=== PATIENT | male | born 1940 | race Caucasian/White ===

== ENCOUNTER → 2018-12-12 10:02 | Outpatient (CLI) | payer MEDICARE, OTHER, SELFPAY ==
[2014-12-04 12:46] VITALS: BMI 33.7
--- NOTE | 2018-12-12 10:09 | EKG12_ITS ---
Test Reason : ROUTINE Blood Pressure : / mmHG Vent. Rate : 070 BPM Atrial Rate : 300 BPM P-R Int : 000 ms QRS Dur : 148 ms QT Int : 472 ms P-R-T Axes : 000 268 027 degrees QTc Int : 509 ms Atrial flutter Right bundle branch block Possible Lateral infarct , age undetermined Inferior infarct , age undetermined Abnormal ECG Confirmed by TOBIAS BAILEY, HANNAH ([id number]), video effects editor GAUDENCIO DAMON ([id number]) on 12/13/2018 1:58:19 PM Referred By: [place] Confirmed By:HANNAH COLLADO MD
== END ==
PROVIDERS: Family Provider Family Medicine; PCP Family Medicine; Referring Provider Internal Medicine Pulmonary Disease; Visit Provider Internal Medicine Pulmonary Disease
DX: I48.91 Unspecified atrial fibrillation (principal)
CPT/HCPCS: 93005

== ENCOUNTER → 2018-12-19 09:43 | Outpatient (CLI) | payer MEDICARE, OTHER, SELFPAY ==
--- NOTE | 2018-12-19 09:47 | RAD_ITS ---
PROCEDURE: Sniff test. DATE OF EXAMINATION: December 19, 2018 INDICATION: Male, 78 years old. Elevated right hemidiaphragm. FLUOROSCOPY TIME (if supplied): (0:16) minutes/seconds There is elevation of the right hemidiaphragm. There is normal translation of the right and left hemidiaphragms during the inspiration expiration views. RAD/Chest Sniff Test Fluoro Only IMPRESSION: Normal excursion of the hemidiaphragms. Electronically Signed: Keanu Moeller, at 15:02 EDT , Service support ,
--- NOTE | 2018-12-19 09:50 | RAD_ITS ---
STUDY: X-RAY CHEST REASON FOR EXAM: Male, 78 years old. Dyspnea. TECHNIQUE: PA and lateral views of the chest. COMPARISON: None. FINDINGS: There is elevation of the right hemidiaphragm. Blunting of the left costophrenic angle with mild increased markings at the left lung base suggestive of scarring and/or atelectasis. Sternal cerclage wires and vascular clips are present from a prior sternotomy and coronary artery bypass graft procedure (CABG). Mild cardiomegaly. Normal mediastinum and no. Normal visualized pulmonary arteries. There is atherosclerotic tortuosity of the aortic arch and descending thoracic aorta. There are diffuse degenerative changes of the visualized thoracic spine. Status post right shoulder replacement. There is no demonstrated abnormality of the visualized soft tissue structures of the upper abdomen. RAD/Chest PA and Lateral IMPRESSION: Elevation of the right hemidiaphragm. Blunting of the left costophrenic angle with mild increased markings at the left lung base suggestive of scarring and/or atelectasis. Electronically Signed: Keanu Moeller, at 10:20 EDT , Service support ,
== END ==
PROVIDERS: Family Provider Family Medicine; PCP Family Medicine; Referring Provider Internal Medicine Pulmonary Disease; Visit Provider Internal Medicine Pulmonary Disease
DX: R06.00 Dyspnea, unspecified (principal)
CPT/HCPCS: 71046; 76000

== ENCOUNTER → 2019-02-01 06:56 | Outpatient (CLI) | payer MEDICARE, OTHER, SELFPAY ==
--- NOTE | 2019-02-01 06:57 | CT_ITS ---
STUDY: CT CHEST WITHOUT CONTRAST REASON FOR EXAM: Male, 78 years old. Dyspnea. RADIATION DOSAGE (If Supplied By Facility): CTDIvol = ( 17.64 ) mGy, DLP = ( 617.04 ) mGycm TECHNIQUE: Transaxial imaging was performed without the administration of intravenous contrast material. Multiplanar coronal and sagittal images were reformatted. Individualized dose optimization techniques were used for this CT. COMPARISON: None. FINDINGS: The lungs are underexpanded with mild bilateral basilar and left apical atelectasis. Remainder of the lung frank are clear. No distinct nodule or infiltrate seen. There is no demonstrated pleural abnormality. Sternal cerclage wires and vascular clips are present from a prior sternotomy and coronary artery bypass graft procedure (CABG). Heart is enlarged. Coronary artery calcifications noted. Normal mediastinum. Normal hilar regions. Normal unenhanced pulmonary arteries. There is atherosclerotic calcification of the aortic arch with tortuosity and elongation of the aortic arch and descending thoracic aorta. There are multi-level degenerative changes of the thoracic spine. Upper abdomen: Several low-attenuation structure is demonstrated within the liver at the level of the right and left liver lobe, largest measuring approximately 1.3 cm. These are too small to be adequately characterize and statistically consistent with benign process such as cysts in the absence of known neoplasm. These were described on previous CT examination 10/25/2012. There is mild nonspecific perinephric stranding. The spleen and pancreas are normal. Remainder of the upper abdominal structures are unremarkable. CT/Chest without Contrast IMPRESSION: Bilateral basilar and left apical atelectasis, otherwise no acute cardiopulmonary process seen. Electronically Signed: Suad Johnson MD at 7:21 EST , Service support ,
== END ==
PROVIDERS: Family Provider Family Medicine; PCP Family Medicine; Referring Provider Internal Medicine Pulmonary Disease; Visit Provider Internal Medicine Pulmonary Disease
DX: R06.00 Dyspnea, unspecified (principal)
CPT/HCPCS: 71250

== ENCOUNTER 2022-12-22 14:00 | Outpatient (RCR) | payer MEDICARE, OTHER, SELFPAY ==
[2022-12-22 14:12] VITALS: BP 122/71; PULSE 82; RESP 16; TEMP 36.3; BMI 27.9
--- NOTE | 2022-12-22 16:49 | PCM.WC.HP ---
History of Present Illness Date of Service: 12/22/22 Chief Complaint: Full-thickness ulceration, right ankle History of Wound: Chronic ulceration for the past few months. Progress of Wound: Mr. Danielle is a 82-year-old diabetic male presenting to the wound care center today [facility] for evaluation of chronic ulceration to the lateral aspect of his right ankle. Patient is unsure how the wound started. He believes it is from shoe gear. Patient is a newly diagnosed diabetic. He is a patient of Dr. Rodriguez, and referred to the wound care center per his primary care physician. Patient has had history to the right ankle by Dr. Rodriguez, but the patient denies that this is a wound/surgical complication. Patient does not check his blood sugar at this time but he is on diabetic medication. He denies trauma. Denies constitutional symptoms. No other pedal complaints at this time. [facility] Home Medications aspirin 81 mg chewable tablet 81 mg PO DAILY@0800 12/10/13 [History Last Taken Unknown] finasteride 5 mg tablet 5 mg PO DAILY 12/10/13 [History Last Taken 12/04/14 06:30 5 MG] acetaminophen 325 mg tablet (Pain Relief (acetaminophen)) 650 mg PO Q4H PRN fever or pain 12/22/22 [History Last Taken Unknown] allopurinol 300 mg tablet 300 mg PO BID 12/22/22 [History Last Taken Unknown] ascorbic acid (vitamin C) 500 mg capsule 500 mg PO BID 12/22/22 [History Last Taken Unknown] bumetanide 1 mg tablet 1.5 mg PO BID 12/22/22 [History Last Taken Unknown] cholecalciferol (vitamin D3) 25 mcg (1,000 unit) capsule 25 mcg PO DAILY 12/22/22 [History Last Taken Unknown] colchicine (gout) 0.6 mg capsule 0.6 mg PO DAILY PRN gout flare 12/22/22 [History Last Taken Unknown] empagliflozin 10 mg tablet (Jardiance) 10 mg PO DAILY 12/22/22 [History Last Taken Unknown] ezetimibe 10 mg tablet 10 mg PO DAILY 12/22/22 [History Last Taken Unknown] gabapentin 100 mg capsule 100 mg PO TID 12/22/22 [History Last Taken Unknown] ketotifen fumarate 0.025 % (0.035 %) eye drops ([place]) 1 drp EACH EYE DAILY 12/22/22 [History Last Taken Unknown] latanoprost 0.005 % eye drops 1 drp EACH EYE DAILY 12/22/22 [History Last Taken Unknown] loratadine 10 mg tablet (Allergy Relief (loratadine)) 10 mg PO DAILY 12/22/22 [History Last Taken Unknown] metolazone 2.5 mg tablet 2.5 mg PO .weekly 12/22/22 [History Last Taken Unknown] metoprolol tartrate 25 mg tablet 12.5 mg PO BID 12/22/22 [History Last Taken Unknown] multivitamin (Daily Multi-Vitamin tablet) 1 tab PO DAILY 12/22/22 [History Last Taken Unknown] polyethylene glycol 3350 17 gram/dose oral powder (Miralax) 17 g PO DAILY PRN constipation 12/22/22 [History Last Taken Unknown] potassium chloride 20 mEq tablet,extended release (K-Tab) 40 meq PO TID 12/22/22 [History Last Taken Unknown] pyridoxine (vitamin B6) 100 mg tablet 100 mg PO DAILY 12/22/22 [History Last Taken Unknown] rivaroxaban 20 mg tablet (Xarelto) 20 mg PO DAILY 12/22/22 [History Last Taken Unknown] spironolactone 25 mg tablet 12.5 mg PO DAILY 12/22/22 [History Last Taken Unknown] tafamidis 61 mg capsule 61 mg PO DAILY 12/22/22 [History Last Taken Unknown] Allergy/AdvReac Type Severity Reaction Status Date / Time No Known Allergies Allergy Verified 12/22/22 14:30 Social History Smoking Status: Never smoker Vital Signs Vital Signs Vital Signs: 12/22/22 14:12 Temperature 97.4 F L Temperature Source Temporal Pulse Rate 82 Respiratory Rate 16 Blood Pressure 122/71 H Blood Pressure Mean 88 Blood Pressure Source Monitor Blood Pressure Position Sitting Blood Pressure Location Right Arm Oxygen Delivery Method Room Air Weight Weight: 83.461 kg Body Mass Index (BMI) 27.9 Physical Exam Narrative Vascular: DP and PT pulses are faintly palpable. CFT is brisk to the right lower extremity. Nonpitting edema appreciated to the right ankle. Evidence of varicose veins as well as hemosiderin deposits appreciated bilateral. Neurological: Light touch and epicritic station are intact. Protective sensation is diminished. Dermatological: There is a full-thickness ulceration appreciated to the lateral aspect of the right ankle measuring 0.6 x 0.3 x 0.3 cm. Wound base is granular nature with sanguinous drainage after debridement. There is no probe to bone or sign of infection. Excisional debridement down to and including subcutaneous tissue with number 3 mm dermal curette without incident, to the full-thickness ulceration of the lateral right ankle. Predebridement measurements are 0.3 x 0.2 x 0.2 cm. Postdebridement measurements are 0.6 x 0.3 x 0.3 cm. Musculoskeletal: Muscle strength 5/5 in all quadrants of bilateral. No pain on palpation of full-thickness ulceration. No pain with calf compression. Const alert, oriented x3 and no apparent distress Debridement Note Debridement Note Debridement Free Text: Excisional debridement down to and including subcutaneous tissue with number 3 mm dermal curette without incident, to the full-thickness ulceration of the lateral right ankle. Predebridement measurements are 0.3 x 0.2 x 0.2 cm. Postdebridement measurements are 0.6 x 0.3 x 0.3 cm Post-Debridement Measurements and Additional Note: Post-Debridement Measurements/Treatment - Nurse 1 - General Ulcer Assessment Start: 12/22/22 14:07 Freq: Status: Active Protocol: TAMMY Activity Type Activity Date Activity User E-sign Co-sign Detail Recorded Client Recorded Date Recorded By Document 12/22/22 14:12 [facility] Desktop 12/22/22 14:23 [facility] 12/22/22 14:12 - Today's Visit Information Type of service Initial Visit Arrival Mode Ambulatory,Cane Transfer Assistance None Patient Identification Verified (Name & Yes ) Patient Requires Transmission-Based No Precautions Height and Weight Height 5 ft 8 in Weight 83.461 kg Weight in Pounds 184.0 lbs Weight Measurement Method Stated by Patient Body Mass Index (BMI) 27.9 BMI Classification Overweight BSA - Di 1.97 Vital Signs Temperature (97.8 F-99.1 F) 97.4 F L Temperature Source Temporal Pulse Rate (60-100) 82 Pulse Location Monitor Respiratory Rate (12-18) 16 Respiratory rate source Observation Oxygen Delivery Method Room Air Blood Pressure (90/60-120/80) 122/71 H Blood Pressure Mean 88 Source Monitor Position Sitting Blood Pressure Location Right Arm History Since Last Visit- (Skip if this is Patient's initial visit) Left Footwear Regular Shoe Right Footwear Regular Shoe Pain Scale: 0-10 Numeric Is Patient Pain Free? Yes Lower Extremity Assessment/ Foot Assessment/ Toe Nail Assessment Right -Posterior Tibial Palpable No -Posterior Tibial Doppler Multiphasic -Dorsalis Pedis Palpable No -Dorsalis Pedis Doppler Multiphasic -Extremity Color Hyperpigmented -Hair Growth on Legs No -Hair Growth on Toes No -Temperature of Extremity Warm -Other Deformity No: PRIOR SURGERY W/ VISIBLE CHG IN APPEARANCE OF FOOT/ANKLE -Prior Foot Ulcer No -Charcot Joint No -Prior Amputation No -Thick Yes -Discolored Yes -Deformed No -Improper Length & Hygeine No Left -Posterior Tibial Doppler Inaudible -Dorsalis Pedis Doppler Monophasic -Extremity Color Hyperpigmented -Hair Growth on Legs No -Hair Growth on Toes No -Temperature of Extremity Warm -Other Deformity No -Prior Foot Ulcer No -Charcot Joint No -Prior Amputation No Neuropathy Assessment Feet - Top Side and Bottom <Entered> (a) Communication Assessment Preferred language [place]ian Eligibility Technician Required No Able to Read Yes Able to Write Yes Communication Tools None Right Hearing Abillity Normal Left Hearing Abillity Normal Visual Assistive Devices Glasses Teaching Assessment Preferences Verbal,Written, Audio/Visual, Demonstration Barriers to Learning None Readiness To Learn Excellent Willingness to Engage in Self Management High Activies Readiness to Engage in Self Management High Activities Anxiety Level Calm Cooperation Cooperative Perception Coherent Interest in Health Problem Asks Questions Education Importance Acknowledges Need Does Patient Smoke tobacco or other No substances Smoking Status Never smoker Is Patient Diabetic No Functional Assessment Recent Decline in Ability to Perform Denies Any Declines Culture/Confucianist/Food Operations Manager Cultural/Confucianist Needs that may affect No Treatment Plan Teaching: Wound Center *Welcome to the Wound Center -Person Taught Patient -Teaching Method Discussion -Response to teaching Verbalize understanding Welcome to the Wound Care Center [place]vorian (a) 1 - +, BUT PATIENT STATES FEELING IS FAINT AND DOES EXPERIENCE NUMBNESS/TINGLING OFTEN WC - Nurse 1 - General Ulcer Measurement Start: 12/22/22 14:07 Freq: Status: Active Protocol: Activity Type Activity Date Activity User E-sign Co-sign Detail Recorded Client Recorded Date Recorded By Document 12/22/22 14:12 [facility] Desktop 12/22/22 14:23 [facility] 12/22/22 14:12 Wound Center Nurse 1 #1- R LATERAL ANKLE -Combined with other wound No -Current Size (cm) - Length 0.3 -Current Size (cm) - Width 0.2 -Current Size (cm) - Depth 0.2 -Total Square Cm 0.06 -Date of Last Picture (Recall this 12/22/22 field) -Photo Taken Yes -Epithelialization None Present -Tunneling No -Undermining/Tunneling No -Circular Undermining No -Exudate Amt Small -Exudate Type Serosanguineous -Wound Margin Distinct, Outline Attached -Granulation Amt Medium (34-66%) -Granulation Quality [place] -Slough/Fibrin Yes -Necrosis Amt Medium (34-66%) -Necrotic Tissue Type Adherent Slough -Texture (Jinny-wound Skin Appearance) Assessed -Moisture (Jinny-wound Skin Appearance) Assessed, Maceration,Dry/ Scaly -Color (Jinny-wound Skin Appearance) Assessed -Temperature (Jinny-wound Skin No Abnormality Appearance) (Pt Warm) -Tenderness on Palpation (Jinny-wound No Skin Appearance) -Ulcer Cleansing Rinsed/ Irrigated with Saline -Foul Odor after Cleansing No -Anesthetic Used 5% Lidocaine Gel WC - Nurse 2 - General Ulcer CM Notes Start: 12/22/22 14:07 Freq: Status: Active Protocol: Activity Type Activity Date Activity User E-sign Co-sign Detail Recorded Client Recorded Date Recorded By Document 12/22/22 14:41 Desktop 12/22/22 14:47 12/22/22 14:41 Wound Center Nurse 2 -Time 14:44 -Correct Patient Yes -Correct Side, Site, Position Yes -Correct Procedure Yes -Procedure Performed Yes -Type of Procedure Debridement -Clinical Debridement Subcutaneous -Tissue Removed Subcutaneous -Post Debridement (cm) - Length 0.6 -Post Debridement (cm) - Width 0.3 -Post Debridement (cm) - Depth 0.3 -Total Square (Post) (cm) 0.18 -Area of Debridement (cm) - Length 0.6 -Area of Debridement (cm) - Width 0.3 -Total Square (Area) (cm) 0.18 -Tunneling No -Undermining/Tunneling No -Circular Undermining No -Wound/Ulcer Outcome Not Healed -Ulcer Cleansing Rinsed/ Irrigated with Saline -Foul Odor after Cleansing No -Bioengineered Tissue No -Bleeding Controlled with Pressure -Treatment Response Procedure Tolerated Well -Offloading No -Debridement - Subq, 1st 20sq cm Yes Pain Scale: 0-10 Numeric Is Patient Pain Free? Yes - Nurse 3 - General Ulcer D/C NN Start: 12/22/22 14:07 Freq: Status: Active Protocol: Activity Type Activity Date Activity User E-sign Co-sign Detail Recorded Client Recorded Date Recorded By Document 12/22/22 15:16 DL Desktop 12/22/22 15:17 DL 12/22/22 15:16 Wound Care Center Nurse 3 #1- R LATERAL ANKLE -Ulcer Cleansing Rinsed/ Irrigated with Saline -Foul Odor after Cleansing No -Primary Dressing Applied Mepilex Border, Promogran Latha Matter -Other Dressing betadine -Mepilex Border 1 -Promogran Latha Matter 1 Treatment Response Procedure Tolerated Well Pain Scale: 0-10 Numeric Is Patient Pain Free? Yes WC - Visit Discharge Discharge Condition Stable Ambulatory Status Ambulatory,Cane Transportation Private Auto Accompanied by family Assessment/Plan Assessment/Plan (1) Type 2 diabetes mellitus with foot ulcer: CODE(S): E11.621 - Type 2 diabetes mellitus with foot ulcer; L97.509 - Non-pressure chronic ulcer of other part of unspecified foot with unspecified severity QUALIFIERS: Diabetes mellitus exterminator helper termite insulin use: without exterminator helper termite use Qualified Code(s): E11.621 - Type 2 diabetes mellitus with foot ulcer; L97.509 - Non-pressure chronic ulcer of other part of unspecified foot with unspecified severity PLAN: Patient was examined evaluated. All findings were discussed with the patient. All questions were answered to the patient's satisfaction. Excisional debridement down to and including subcutaneous tissue with number 3 mm dermal curette without incident, to the full-thickness ulceration of the lateral right ankle. Predebridement measurements are 0.3 x 0.2 x 0.2 cm. Postdebridement measurements are 0.6 x 0.3 x 0.3 cm. Wound was dressed with Latha, Betadine paint and sterile Band-Aid. Patient was instructed to change his dressing every 2 days and follow-up in 1 week. He left the office pleased with visit. Patient will have pulse volume recordings as well as venous reflux studies ordered today. Patient will also have right ankle films ordered today for baseline studies. (2) Diabetes mellitus with diabetic polyneuropathy: CODE(S): E11.42 - Type 2 diabetes mellitus with diabetic polyneuropathy QUALIFIERS: Diabetes mellitus type: type 2 Diabetes mellitus jail insulin use: without exterminator helper termite use Qualified Code(s): E11.42 - Type 2 diabetes mellitus with diabetic polyneuropathy (3) Pain in right ankle: CODE(S): M25.571 - Pain in right ankle and joints of right foot QUALIFIERS: Chronicity: acute Qualified Code(s): M25.571 - Pain in right ankle and joints of right foot (4) PAD (peripheral artery disease): CODE(S): I73.9 - Peripheral vascular disease, unspecified PLAN: Patient will have pulse volume recordings as well as venous reflux studies ordered today. Patient will also have right ankle films ordered today for baseline studies. (5) Venous insufficiency: CODE(S): I87.2 - Venous insufficiency (chronic) (peripheral)
== END 2022-12-25 23:59 | disposition home or self-care (01) ==
LOC: WC 14:00
PROVIDERS: Visit Provider Podiatrist Foot & Ankle Surgery
DX: E11.621 Type 2 diabetes mellitus with foot ulcer (principal); E11.51 Type 2 diabetes mellitus with diabetic peripheral angiopathy without gangrene; L97.319 Non-pressure chronic ulcer of right ankle with unspecified severity; E11.42 Type 2 diabetes mellitus with diabetic polyneuropathy; I87.2 Venous insufficiency (chronic) (peripheral); R60.0 Localized edema; Z79.82 Long term (current) use of aspirin; Z79.84 Long term (current) use of oral hypoglycemic drugs; Z79.01 Long term (current) use of anticoagulants; Z79.899 Other long term (current) drug therapy
CPT/HCPCS: 11042; 99214; G0463

== ENCOUNTER → 2022-12-28 | Outpatient (CLI) | payer MEDICARE, OTHER, SELFPAY ==
--- NOTE | 2022-12-28 12:15 | CT_ITS ---
STUDY: CT ABDOMEN AND PELVIS WITHOUT CONTRAST REASON FOR EXAM: Male, 82 years old. GROSS HEMATURIA RADIATION DOSAGE (If Supplied By Facility): CTDIvol = ( 9.86 ) mGy, DLP = ( 507.28 ) mGycm TECHNIQUE: Transaxial images were obtained from the dome of the diaphragm to the symphysis pubis without oral contrast, and without intravenous contrast. Sagittal and coronal images were reconstructed. Individualized dose optimization techniques were used for this CT. COMPARISON: None. FINDINGS: Mild linear scarring at the left lung base. Coronary artery calcification. Prior CABG. Tiny hypodensity in the dome of the right lobe liver suggestive of a small cyst. Scattered cysts are also seen in the midportion of the right lobe of the liver. Calcified granulomas are seen in the posterior lateral aspect of the right lobe of the liver. Normal gallbladder and extrahepatic biliary system. Normal spleen. Normal pancreas. Normal bilateral adrenal glands. Normal right kidney. Normal left kidney. Normal visualized stomach. Normal small intestine. Normal colon. The appendix is visualized and appears normal. There is diffuse atherosclerotic calcification of the abdominal aorta and its major visceral branches, without a demonstrated aneurysm. Normal inferior vena cava. There is borderline retroperitoneal lymphadenopathy with enlarged nodes no greater than 10mm in the short axis diameter. Distended urinary bladder. Mild degree of bladder wall thickening. The prostate is enlarged. It measures 4.8 sinus by 4.5 cm. This causes indentation at the bladder base. There is a left-sided inguinal hernia containing adipose tissue. Small umbilical hernia containing fat. There are diffuse degenerative changes of the visualized lumbar spine. Grade 1 anterior listhesis of L5 on S1 secondary to spondylolysis of the pars interarticularis of the L5 vertebrae. Facet joint osteoarthritis. CT/Abdomen/Pelvis without Cont IMPRESSION: Small hepatic cysts. Prostatic enlargement with indentation at the bladder base. Distended urinary bladder and mild degree of bladder wall thickening. Electronically Signed: Keanu Moeller MD at 14:28 EDT ,
== END | disposition home or self-care (01) ==
LOC: CT 12:14
PROVIDERS: Referring Provider Urology; Visit Provider Urology
DX: R97.20 Elevated prostate specific antigen [PSA] (principal); R31.0 Gross hematuria
CPT/HCPCS: 74176

== ENCOUNTER 2023-01-05 14:45 | Outpatient (RCR) | payer MEDICARE, OTHER, SELFPAY ==
[2022-12-26 00:29] VITALS: BP 122/71; PULSE 82; RESP 16; TEMP 36.3; BMI 27.9
--- NOTE | 2022-12-28 12:22 | RAD_ITS ---
STUDY: X-RAY - RIGHT ANKLE REASON FOR EXAM: Male, 82 years old. Right ankle ulcer. TECHNIQUE: 3 views of the right ankle. COMPARISON: None. FINDINGS: Normal visualized distal tibia and fibula. Normal medial and lateral malleoli. Normal tibiotalar articulation and ankle mortise. Intact visualized talus and calcaneus. There is mild osseous fragmentation adjacent to the posterior calcaneal tuberosity at the distal insertion of the Achilles tendon. The visualized subtalar, talonavicular, calcaneocuboid and tarsal articulations are normal. There is soft tissue swelling along the lateral aspect of the ankle. There are atherosclerotic calcifications. RAD/Ankle min 3 Views IMPRESSION: Mild osseous fragmentation adjacent to the posterior calcaneal tuberosity at the distal insertion of the Achilles tendon. Soft tissue swelling along the lateral aspect of the ankle. Electronically Signed: Fortino Benz MD at 9:50 EDT ,
--- NOTE | 2022-12-28 12:22 | VDLE_ITS ---
Reason For Study: Edema RIGHT LEFT CFV is compressible, spontaneous, phasic, CFV is compressible, spontaneous, phasic, competent and demonstrates normal competent, and demonstrates normal augmentation. augmentation. FV is compressible, spontaneous, phasic, FV is compressible, spontaneous, phasic, competent and demonstrates normal competent and demonstrates normal augmentation. augmentation. POP V is compressible, spontaneous, phasic, POP V is compressible, spontaneous, phasic, competent and demonstrates normal competent and demonstrates normal augmentation. augmentation. T/P Trunk is compressible. T/P Trunk is compressible. PTV is compressible. PTV is compressible. RT PerV is compressible. LT PerV is compressible. SFJ is competent and measures 0.69 cm. SFJ is competent and measures 0.60 cm. GSV proximal thigh measures 0.32 x 0.35 cm. GSV is competent throughout. GSV is competent throughout. GSV proximal thigh measures 0.34 x 0.39 cm. SSV at junction is competent and measures GSV at knee measures 0.28 x 0.32 cm. 0.32 cm. SSV proximal calf is competent and measures SSV proximal calf is competent and measures 0.24 x 0.26 cm. 0.34 x 0.33 cm. SSV mid calf is INCOMPETENT for > 0.5 seconds and measures 0.21 x 0.30 cm. PT has HX of CABG. Rt Gsv harvested from mid thigh to ankle. Procedure This is a venous duplex using B-mode, color flow and spectral Doppler. Exam performed in department. The exam was diagnostic. VL/Venous Duplex US - Oswaldo Extrem Interpretation Summary Deep veins of the lower extremities are bilaterally patent and compressible seg mentally. There is no evidence of deep vein thrombosis on either side. Valvular competence appears in tact within the proximal deep venous systems bilaterally. Sapheno-femoral junctions are bilater ally competent . The right great saphenous vein is patent and competent, but has been harvested from the mid-thigh to the ankle. The left great saphenous vein is patent and competent. The right small s aphenous vein is incompetent in the mid-calf, but competent more proximally. The left small saph enous vein is patent and competent. Ordering Physician: John Reed Referring Physician: Ozzie Berg Performed By: Ander Mendiola RVT
--- NOTE | 2022-12-28 12:23 | ART_ITS ---
Reason For Study: RLE Wound Procedure A bilateral lower extremity continuous wave Doppler with analog waveform analysis,segmental pressures,and ankle brachial indexes without exercise. Left Segmental Pressures Left brachial= 96mmHg. Left posterior tibial artery = 121mmHg. Left dorsalis pedis artery = 121mmHg. Left digit = 60 mmHg. The left posterior tibial artery waveforms are triphasic. The left dorsalis pedis waveforms are triphasic. Right Segmental Pressures Right brachial= 88mmHg. Right posterior tibial artery = 170mmHg. Right dorsalis pedis artery = 132mmHg. Right digit = 55 mmHg. The right posterior tibial artery waveforms are triphasic. The right dorsalis pedis waveforms are biphasic. Indices The right ankle brachial index by the posterior tibial artery is 1.26. The right ankle brachial index by the dorsalis pedis is 1.26. The right digital-brachial index is 0.63. The left ankle brachial index by the posterior tibial artery is 1.77. The left ankle brachial index by the dorsalis pedis is 1.38. The left digital-brachial index is 0.57. VL/Lower Ext Art Exam w/o Exercis Interpretation Summary Triphasic Doppler waveforms are noted at ankle level on the right. Triphasic an d biphasic Doppler waveforms are noted at ankle level on the left. Pulse-volume recordings are dim inished at ankle and digital level on the right. Resting ankle-brachial indices are normal on the ri ght, and supra-normal on the left. Digital-brachial indices are mildly diminished bilaterally. There is evidence of arterial calcification at ankle level on the left. Arteria l flow appears normal at ankle level bilaterally. There is evidence of mild arterial occlusive diseas e at digital level bilaterally. Ordering Physician: John Reed Performed By: Ander Mendiola RVT
[2022-12-29 14:34] VITALS: BP 93/58; PULSE 82; TEMP 36.1; BMI 27.9
--- NOTE | 2022-12-29 15:40 | PCM.WC.PN ---
History of Present Illness Date of Service: 12/29/22 Chief Complaint: Full-thickness ulceration, right ankle History of Wound: Chronic ulceration for the past few months. Subjective Subjective Mr. Danielle is a 82-year-old diabetic male presenting today for follow-up of bilateral PVRs as well as right lower extremity radiographs. Patient has been compliant with changing his dressing at home. He denies any strikethrough. He admits to some improvement to the ulceration to the lateral aspect of the right ankle. He denies any new onset of trauma. He denies constitutional symptoms. No other pedal complaints at this time. Objective Data Objective Data Vital Signs: Vital Signs Temp Pulse Resp BP O2 Del Method 97 F L 82 16 93/58 L Room Air 12/29/22 14:34 12/29/22 14:34 12/26/22 00:29 12/29/22 14:34 12/29/22 14:34 Oxygen Delivery Method Room Air Weight: 83.461 kg Body Mass Index (BMI) 27.9 Lab / Micro Data Attestation: I reviewed the patient's lab results. Radiography Diagnostic Testing: Radiology Impression Ankle X-Ray 12/28/22 12:22 IMPRESSION: Mild osseous fragmentation adjacent to the posterior calcaneal tuberosity at the distal insertion of the Achilles tendon. Soft tissue swelling along the lateral aspect of the ankle. Electronically Signed: Fortino Benz MD at 9:50 EDT Reading Location ID and State: [address] [place] [address] , Service support , Physical Exam Narrative Novast status unchanged. Full-thickness ulceration to the lateral aspect of the right ankle measuring 0.6 x 0.2 x 0.2 cm. No drainage erythema or proximal streaking. No sign of infection. No probe to bone. No pain with calf compression. Excisional debridement down to and including subcutaneous tissue with number 3 mm dermal curette without incident, to the full-thickness ulceration of the lateral right ankle. Predebridement measurements are 0.4 x 0.1 x 0.1 cm. Postdebridement measurements are 0.6 x 0.2 x 0.2 cm. Debridement Note Debridement Note Debridement Free Text: Excisional debridement down to and including subcutaneous tissue with number 3 mm dermal curette without incident, to the full-thickness ulceration of the lateral right ankle. Predebridement measurements are 0.4 x 0.1 x 0.1 cm. Postdebridement measurements are 0.6 x 0.2 x 0.2 cm. Post-Debridement Measurements and Additional Note: Post-Debridement Measurements/Treatment FRAN - Nurse 1 - General Ulcer Assessment Start: 12/29/22 14:33 Freq: Status: Active Protocol: TAMMY Activity Type Activity Date Activity User E-sign Co-sign Detail Recorded Client Recorded Date Recorded By Document 12/29/22 14:34 Desktop 12/29/22 14:49 GM 12/29/22 14:34 WC - Today's Visit Information Type of service Follow-up Visit (Physician/COLOR STRAINING BAG WASHER ) Arrival Mode Ambulatory,Cane Transfer Assistance None Patient Identification Verified (Name & Yes ) Patient Requires Transmission-Based No Precautions Height and Weight Body Mass Index (BMI) 27.9 BMI Classification Overweight Vital Signs Temperature (97.8 F-99.1 F) 97 F L Temperature Source Temporal Pulse Rate (60-100) 82 Pulse Location Monitor Oxygen Delivery Method Room Air Blood Pressure (90/60-120/80) 93/58 L Blood Pressure Mean (mm Hg) 69 Source Monitor Position Sitting Blood Pressure Location Left Arm History Since Last Visit- (Skip if this is Patient's initial visit) Have you changed medications since your No last visit? Any new allergies or adverse reactions No Had a fall/change in ADL's that may No increase risk of falls Signs or symptoms of abuse and/or No neglect since last visit Have you been in the hospital since your No last visit? Has dressing in place as prescribed Yes Has compression in place as prescribed N/A Has offloadiing in place as prescribed N/A Experienced any changes in pain level or No management Left Footwear Regular Shoe Right Footwear Regular Shoe Pain Scale: 0-10 Numeric Is Patient Pain Free? Yes FRAN - Nurse 1 - General Ulcer Measurement Start: 12/29/22 14:33 Freq: Status: Active Protocol: Activity Type Activity Date Activity User E-sign Co-sign Detail Recorded Client Recorded Date Recorded By Document 12/29/22 14:34 Desktop 12/29/22 14:49 12/29/22 14:34 Wound Center Nurse 1 #1- R LATERAL ANKLE -Current Size (cm) - Length 0.1 -Current Size (cm) - Width 0.1 -Current Size (cm) - Depth 0.1 -Total Square Cm 0.01 -Photo Taken No -Tunneling No -Undermining/Tunneling No -Circular Undermining No -Exudate Amt Medium -Exudate Type Serous -Wound Margin Distinct, Outline Attached -Granulation Amt Medium (34-66%) -Granulation Quality [place] -Slough/Fibrin Yes -Necrotic Tissue Type Adherent Slough -Texture (Jinny-wound Skin Appearance) Assessed -Moisture (Jinny-wound Skin Appearance) Assessed -Color (Jinny-wound Skin Appearance) Assessed -Temperature (Jinny-wound Skin No Abnormality Appearance) (Pt Warm) -Tenderness on Palpation (Jinny-wound Yes Skin Appearance) -Ulcer Cleansing Rinsed/ Irrigated with Saline -Foul Odor after Cleansing No -Anesthetic Used 5% Lidocaine Gel WC - Nurse 2 - General Ulcer CM Notes Start: 12/29/22 14:33 Freq: Status: Active Protocol: Activity Type Activity Date Activity User E-sign Co-sign Detail Recorded Client Recorded Date Recorded By Document 12/29/22 15:07 Laptop 12/29/22 15:12 12/29/22 15:07 Wound Center Nurse 2 -Time 15:07 -Correct Patient Yes -Correct Side, Site, Position Yes -Correct Procedure Yes -Procedure Performed Yes -Type of Procedure Debridement -Clinical Debridement Subcutaneous -Tissue Removed Subcutaneous -Post Debridement (cm) - Length 0.6 -Post Debridement (cm) - Width 0.2 -Post Debridement (cm) - Depth 0.2 -Total Square (Post) (cm) 0.12 -Area of Debridement (cm) - Length 0.6 -Area of Debridement (cm) - Width 0.2 -Total Square (Area) (cm) 0.12 -Tunneling No -Undermining/Tunneling No -Circular Undermining No -Wound/Ulcer Outcome Not Healed -Ulcer Cleansing Rinsed/ Irrigated with Saline -Foul Odor after Cleansing No -Bioengineered Tissue No -Bleeding Controlled with Pressure -Treatment Response Procedure Tolerated Well -Offloading No -Debridement - Subq, 1st 20sq cm Yes Pain Scale: 0-10 Numeric Is Patient Pain Free? 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 All findings were discussed with the patient. All questions were answered to the patient's satisfaction. Excisional debridement down to and including subcutaneous tissue with number 3 mm dermal curette without incident, to the full-thickness ulceration of the lateral right ankle. Predebridement measurements are 0.4 x 0.1 x 0.1 cm. Postdebridement measurements are 0.6 x 0.2 x 0.2 cm. Ulceration was dressed with Latha Betadine paint and sterile Band-Aid. Patient is to change his dressing daily. He will follow-up in 1 week. (2) Diabetes mellitus with diabetic polyneuropathy: CODE(S): E11.42 - Type 2 diabetes mellitus with diabetic polyneuropathy QUALIFIERS: Diabetes mellitus type: type 2 Diabetes mellitus buttermaker helper insulin use: without buttermaker helper use Qualified Code(s): E11.42 - Type 2 diabetes mellitus with diabetic polyneuropathy (3) Type 2 diabetes mellitus with foot ulcer: CODE(S): E11.621 - Type 2 diabetes mellitus with foot ulcer; L97.509 - Non-pressure chronic ulcer of other part of unspecified foot with unspecified severity QUALIFIERS: Diabetes mellitus correction insulin use: without correction use Qualified Code(s): E11.621 - Type 2 diabetes mellitus with foot ulcer; L97.509 - Non-pressure chronic ulcer of other part of unspecified foot with unspecified severity
[2023-01-05 14:42] VITALS: BP 116/81; PULSE 94; TEMP 36; BMI 27.9
--- NOTE | 2023-01-05 16:36 | WC ---
Doxycycline 100 mg 1 tab bid x14 days called into [facility] pharmacy.
--- NOTE | 2023-01-05 17:13 | PCM.WC.PN ---
History of Present Illness Date of Service: 01/05/23 Chief Complaint: Full-thickness ulceration, right ankle History of Wound: Chronic ulceration for the past few months. Subjective Subjective Mr. Danielle is a 82-year-old diabetic male presenting today for follow-up chronic ulceration to the lateral aspect of the right leg. Patient's wound is still present after home dressing changes. He denies any drainage or sign of infection. He has kept his dressing clean dry and intact. He denies trauma. Denies constitutional symptoms. No other pedal complaints at this time. Objective Data Objective Data Vital Signs: Vital Signs Temp Pulse Resp BP O2 Del Method 96.8 F L 94 16 116/81 H Room Air 01/05/23 14:42 01/05/23 14:42 12/26/22 00:29 01/05/23 14:42 01/05/23 14:42 Oxygen Delivery Method Room Air Weight: 83.461 kg Body Mass Index (BMI) 27.9 Physical Exam Narrative Neurovascular unchanged. Full-thickness ulceration to the lateral aspect of the right ankle measuring 0.6 x 0.2 x 0.2 cm. No drainage erythema or proximal streaking. No sign of infection. No probe to bone. No pain with calf compression. Delayed primary closure was performed today in office. Please see procedure note for further detail. Debridement Note Debridement Note Post-Debridement Measurements and Additional Note: Post-Debridement Measurements/Treatment - Nurse 1 - General Ulcer Assessment Start: 12/29/22 14:33 Freq: Status: Active Protocol: .LOWEX Activity Type Activity Date Activity User E-sign Co-sign Detail Recorded Client Recorded Date Recorded By Document 12/29/22 14:34 Desktop 12/29/22 14:49 Document 01/05/23 14:42 Desktop 01/05/23 14:53 12/29/22 01/05/23 14:34 14:42 - Today's Visit Information Type of service Follow-up Visit Follow-up Visit (Physician/CAMPAIGN DEVELOPER (Physician/CAMPAIGN DEVELOPER ) ) Arrival Mode Ambulatory,Cane Ambulatory,Cane Transfer Assistance None None Patient Identification Verified (Name & Yes Yes ) Patient Requires Transmission-Based No No Precautions Height and Weight Body Mass Index (BMI) 27.9 27.9 BMI Classification Overweight Overweight Vital Signs Temperature (97.8 F-99.1 F) 97 F L 96.8 F L Temperature Source Temporal Temporal Pulse Rate (60-100) 82 94 Pulse Location Monitor Monitor Oxygen Delivery Method Room Air Room Air Blood Pressure (90/60-120/80) 93/58 L 116/81 H Blood Pressure Mean (mm Hg) 69 92 Source Monitor Monitor Position Sitting Sitting Blood Pressure Location Left Arm Right Arm History Since Last Visit- (Skip if this is Patient's initial visit) Have you changed medications since your No No last visit? Any new allergies or adverse reactions No No Had a fall/change in ADL's that may No No increase risk of falls Signs or symptoms of abuse and/or No No neglect since last visit Have you been in the hospital since your No No last visit? Has dressing in place as prescribed Yes Yes Has compression in place as prescribed N/A N/A Has offloadiing in place as prescribed N/A N/A Experienced any changes in pain level or No management Left Footwear Regular Shoe Regular Shoe Right Footwear Regular Shoe Regular Shoe Pain Scale: 0-10 Numeric Is Patient Pain Free? Yes Yes - Nurse 1 - General Ulcer Measurement Start: 12/29/22 14:33 Freq: Status: Active Protocol: Activity Type Activity Date Activity User E-sign Co-sign Detail Recorded Client Recorded Date Recorded By Document 12/29/22 14:34 Desktop 12/29/22 14:49 Document 01/05/23 14:42 Desktop 01/05/23 14:53 12/29/22 01/05/23 14:34 14:42 Wound Center Nurse 1 #1- R LATERAL ANKLE -Combined with other wound No -Current Size (cm) - Length 0.1 0.5 -Current Size (cm) - Width 0.1 0.3 -Current Size (cm) - Depth 0.1 0.2 -Total Square Cm 0.01 0.15 -Photo Taken No No -Epithelialization Small 1-33% -Tunneling No No -Undermining/Tunneling No No -Circular Undermining No No -Exudate Amt Medium Small -Exudate Type Serous Serosanguineous -Wound Margin Distinct, Distinct, Outline Outline Attached Attached -Granulation Amt Medium (34-66%) Small (1-33%) -Granulation Quality [place] Red -Slough/Fibrin Yes Yes -Necrosis Amt Large (67-100%) -Necrotic Tissue Type Adherent Slough Adherent Slough -Texture (Jinny-wound Skin Appearance) Assessed Assessed, Scarring -Moisture (Jinny-wound Skin Appearance) Assessed Assessed -Color (Jinny-wound Skin Appearance) Assessed Assessed -Temperature (Jinny-wound Skin No Abnormality No Abnormality Appearance) (Pt Warm) (Pt Warm) -Tenderness on Palpation (Jinny-wound Yes No Skin Appearance) -Ulcer Cleansing Rinsed/ Rinsed/ Irrigated with Irrigated with Saline Saline -Foul Odor after Cleansing No No -Anesthetic Used 5% Lidocaine 5% Lidocaine Gel Gel WC - Nurse 2 - General Ulcer CM Notes Start: 12/29/22 14:33 Freq: Status: Active Protocol: Activity Type Activity Date Activity User E-sign Co-sign Detail Recorded Client Recorded Date Recorded By Document 12/29/22 15:07 Prepared Response Laptop 12/29/22 15:12 Document 01/05/23 15:54 Laptop 01/05/23 15:54 12/29/22 01/05/23 15:07 15:54 Wound Center Nurse 2 #1- R LATERAL ANKLE -Time 15:07 -Correct Patient Yes No -Correct Side, Site, Position Yes No -Correct Procedure Yes No -Procedure Performed Yes No -Type of Procedure Debridement -Clinical Debridement Subcutaneous -Tissue Removed Subcutaneous -Post Debridement (cm) - Length 0.6 -Post Debridement (cm) - Width 0.2 -Post Debridement (cm) - Depth 0.2 -Total Square (Post) (cm) 0.12 -Area of Debridement (cm) - Length 0.6 -Area of Debridement (cm) - Width 0.2 -Total Square (Area) (cm) 0.12 -Tunneling No -Undermining/Tunneling No -Circular Undermining No -Wound/Ulcer Outcome Not Healed Healed- Surgical Closure -Ulcer Cleansing Rinsed/ Irrigated with Saline -Foul Odor after Cleansing No -Bioengineered Tissue No -Bleeding Controlled with Pressure -Treatment Response Procedure Procedure Tolerated Well Tolerated Well -Offloading No No -Debridement - Subq, 1st 20sq cm Yes Pain Scale: 0-10 Numeric Is Patient Pain Free? Yes Yes FRAN - Nurse 3 - General Ulcer D/C NN Start: 12/29/22 14:33 Freq: Status: Active Protocol: Activity Type Activity Date Activity User E-sign Co-sign Detail Recorded Client Recorded Date Recorded By Document 01/05/23 16:12 KW Desktop 01/05/23 16:13 KW 01/05/23 16:12 Wound Care Center Nurse 3 #1- R LATERAL ANKLE -Ulcer Cleansing Rinsed/ Irrigated with Saline -Primary Dressing Covered/Secured with Dry Gauze & Roll Gauze, Secured with Tape Pain Scale: 0-10 Numeric Is Patient Pain Free? 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 All findings were discussed with the patient. All questions were answered to the patient's satisfaction. Verbal consent obtained from the patient. Chart review. The right lower extremity was anesthetized at the level of the full-thickness ulceration using 10 cc of 1% lidocaine plain. The right lateral full-thickness ulceration was prepped and draped in normal aseptic manner. A 3-1 incision was made, ellipsed out the existing ulceration without incident. Sanguinous drainage was noted. There is no evidence of probe to bone or sign of infection. 2-0 suture was used to close the 3-1 incision with simple interrupted suture technique. After closure there was no evidence of any ulceration. Right lower extremities were cleaned and patted dry. The incision was dressed with Betadine soaked Adaptic, dry sterile dressing and a single layer Bobo compression bandage was donned. The patient will follow-up in my clinic in approximately 1 week for evaluation. The patient will be placed on a prophylactic dose of doxycycline 100 mg twice daily for 2 weeks. Any additional concerns the patient or his daughter is to call my office. Follow-up 1 week (2) Pain in right ankle: CODE(S): M25.571 - Pain in right ankle and joints of right foot QUALIFIERS: Chronicity: acute Qualified Code(s): M25.571 - Pain in right ankle and joints of right foot
== END 2023-01-06 15:27 | disposition home or self-care (01) ==
LOC: WC 14:45
PROVIDERS: Visit Provider Podiatrist Foot & Ankle Surgery
DX: E11.622 Type 2 diabetes mellitus with other skin ulcer (principal); L97.312 Non-pressure chronic ulcer of right ankle with fat layer exposed; E11.42 Type 2 diabetes mellitus with diabetic polyneuropathy; M10.9 Gout, unspecified; M25.571 Pain in right ankle and joints of right foot; M79.89 Other specified soft tissue disorders; R60.9 Edema, unspecified
CPT/HCPCS: 11042; 73610; 93923; 93970; 99214; G0463

== ENCOUNTER 2024-11-19 14:00 | Outpatient (RCR) | payer MEDICARE, OTHER, SELFPAY ==
--- NOTE | 2024-10-02 13:27 | HP.SP.EV_ITS ---
Visit History Visit Info Date of Eval: 10/02/24 Today is Visit #: 1 Operations Research Engineer: CHARLY History Attending Doctor: Referring Doctor: Reason for Referral: SPEECH THERAPY. RX HERE Medical Diagnosis: Dysphonia Date of Onset of Diagnosis: 09/18/24 Previous speech therapy: No Other Relevant Medical History/Diagnoses/Surgery: Restrictive lung disease, HTN, CAD, dyslipidemia, arthritis, respiratory failure (no hospitalizations reported by patient for it), atrial fib, asthenia, BPH, dyspnea, edema, hiatal hernia, pleural effusion, TARYN. He stated he may have had pnuemonia because he was on antibiotics before but wasn't sure. Medications related to this diagnosis: Vitamin C, gabapentin, montelukast, mucinexn Smoking Status: Never smoker Diagnosis Diagnosis: Mild dysphonia Pain Is pain an issue with your current prescribed condition?: No Personal Preferred language: Bulgarian Patient Allergies Allergies Allergies: Allergies No Known Allergies Allergy (Verified 12/22/22 14:30) Subjective Dysphagia Symptoms Reported Symptoms/Problems with: Coughing and Difficulty Swallowing Liquids Current Diet Solids Current Diet: Regular Current Diet Liquids Current Liquids: Thin Comments Dysphagia: -: Patient stated that he has a high level of mucus that he removes rather than swallow. He asked for water during the evaluation and exhibited throat clearing/coughing after taking a drink. He reported that he typically coughs during meals but not typically during other times of the day. A dysphagia evaluation is warranted for further analysis of possible swallowing deficits. Subjective Voice Informal Questioner Do you raise your voice (e.g. parenting, calling from room to room, etc.): None Do you talk for long periods of time without a break (teacher, infante): Average Are you a talker: More than average Do you cough: More than average Do you sing: None Do you do impersonations, character voices or unusual sound effects: None Intubation Was the Client intubated: No Intake Water (ounces): 8 Coffee (ounces): 36 Tea (ounces): 0 Soda (ounces): 0 Energy drinks (ounces): 0 Milk (ounces): 4 Juice (ounces): 0 Sports drinks (ounces): 0 Alcoholic Beverage Intake Intake: Never Other Product Usage Do you use products containing menthol (if yes, list): No Do you take Vitamin C Supplements (if yes, list amt (mg)/day: Yes (500 mg) Do you use recreational drugs (if yes, list type/amt/frequency): No Objective Voice Date of Diagnosis Previous Speech Therapy (If yes, describe): No Objective data Objective Data: Objective data: Sound pressure level (SPL acoustic correlation of vocal loudness) was measured with a sound level meter at a distance of 40 cm from the patient's mouth. Average conversational loudness is 70-80 dB and sustained phonation duration is 15 to 20 seconds for a typical adult. Sustained Phonation Intensity (dB SPL): 65 Sustained Phonatin duration (seconds): 7 Is the individual stimulable to increase vocal intensity: Yes (increased to average of 91dB with cues) Vocal Intensity at Conversational Level (dB SPL): 64.5 Subjective Clinical Impression Adult Clinical Impression Pitch breaks: an interruption in the frequency of vibration of the vocal folds or a shift in vocal register during singing. A voice can break up or down in pitch: Present Non-Phonatory Behaviors/Respiration Reduced loudness or vocal weakness: Present Limited breath support for speech: Present Clavicular breathing: excessive movement of the chest and shoulders during inspiration: Present Throat clearing/coughing: Present Reference: Neuro-QoL instrument Radiation Oncology Patient Other Other Mucus: -: Patient states that he has a high level of mucus all the time. He reported feeling like his voice is trapped inside his head and that others can't hear him. He reported twice during the evaluation that his left ear popped. He stated that he thinks milk and sugar are making the mucus worse as he did not have this this morning and it seems a little better. Plan Plan Plan: Speech therapy is recommended for mild dysphonia. The patient exhibits reduced breath support and reduced ability to effectively communicate in all settings with reduced volume. Recommendations Treatment Warranted: Yes Treatment Warranted: Dysphagia and Voice Comment: Dysphagia evaluation. Progress Prognosis: Good Frequency Frequency: 1x/Week Duration: 2 Months Visits in this POC: 8 Patient/Family Goal Patient/Family Goal: Patient's goal is for everyone to be able to hear him. Goals that are Established Determination:: Goals will be added/modified as deemed necessary and appropriate. Therapy will be discontinued when results of re-evaluation indicate therapy is no longer needed or lack of progress has been documented. Goal #1-5 Goal #1: Patient will increase vocal loudness to reach a target sound pressure level of 75 dB ELECTRICAL ENGINEERING TECHNOLOGIST with 1 cue during reading at the word and sentence level, which will help increase vocal respiratory support for functional communication. Goal #2: Patient will increase vocal loudness to reach a target sound pressure l evel of 70 dB ELECTRICAL ENGINEERING TECHNOLOGIST with 1 cue during conversation for functional communication. Goal #3: Dysphagia evaluation with goals added as appropriate. Education Patient has Indicated that the Following Identified Educational Needs: None The Patient has indicated that they have no educational or learning abilities that may effect their care.: Yes Patient Instruction Patient Education: Diagnosis and Goals Person Taught: Patient Response to teaching: Verbalize Understanding
--- NOTE | 2024-10-30 09:52 | SP.FEES_ITS ---
FEES Patient Information Date of Evaluation: 10/22/24 Time of Evaluation: 10:00 Diagnosis: Dysphagia Staff Providing this Care/Treatment:: CHARLY Direct Billable Minutes: 120 History: Past Medical History:: Restrictive lung disease, HTN, CAD, dyslipidemia, arthritis, respiratory failure (no hospitalizations reported by patient for it), atrial fib, asthenia, BPH, dyspnea, edema, hiatal hernia, pleural effusion, TARYN. He stated he may have had pnuemonia because he was on antibiotics before but wasn't sure. TX/DX History:: Yes Subjective: Subjective:: Patient was seen for a speech therapy evaluation on 10/02/24 for dysphonia. Patient stated that he has a high level of mucus that he removes rather than swallow. He asked for water during the evaluation and exhibited throat clearing/coughing after taking a drink. He reported that he typically coughs during meals but not typically during other times of the day. A dysphagia evaluation was recommended for further analysis of possible swallowing deficits. Current Diet: Drinks/Liquids:: Thin Foods:: Regular Medication Administration:: orally Respiratory Status Observation:: Room air. Dentition/Oral Hygiene: Observations:: WFL Vocal Quality: Observations:: WFL and Other (See Comment) Comments:: Mildly reduced in volume. Patient reported that his voice sound stuck in my head. Cognition: Observations:: WFL Position During FEES: Position During FEES:: Upright Location: In Chair Fiberoptic Endoscope: Size: 3.4 mm Nare Used:: Right Anatomy: Velum Movement: Yes and Symmetrical Nasopharynx Tissue Description: Valentine and Moist Secretions: Description:: Other Comment:: Observed some mucus in laryngeal vestibule that was a string across airway. Phonation: Arytenoid Adduction: WNL Vocal Fold Adduction: WFL Penetration-Aspiration Scale Penetration-Aspiration Scale Thin Liquids by Single Cup Food/Drink Provided:: Water Swallow Onset Location:: Pyriform Sinuses PAS Score: PAS Score *8 Visual Analysis of Swallowing Efficiency and Safety (VASES) after the swallow: Hypopharynx, Vocal Folds and Subglottis Comments:: Residue was noted after the swallow on all single swallows. Residue in pyriform sinuses ranged from min to moderate amount. Observed intermittently less 5% inferior to the anterior commissure and less than 5% on subglottic shelf. On one trial he had 10% residue in the vallecula. Strategies Trialed:: Patient intermittently used an independent double swallow. With cued or independent double swallow residue cleared by approximately 80-90%. Small sips decreased the amount of residue in the pyriform sinuses also. Effortful swallow also exhibited less residue after the swallow. Additional Comments:: Patient had least amount of aspiration with small, effortful swallow with double swallow. Thin Liquids by Sequential Cup Food/Drink Provided:: Water Swallow Onset Location:: Pyriform Sinuses Comments:: He exhibited a cough after the swallow but no aspiration was observed. Cough may be from previous aspiration on single drinks. Puree Textures Food/Drink Provided:: Applesauce Swallow Onset Location:: Vallecula PAS Score: PAS Score *1 Visual Analysis of Swallowing Efficiency and Safety (VASES) after the swallow: Oropharynx Comments:: Moderate residue in the vallecula that cleared with a cued second swallow. Soft & Bite Sized Textures Food/Drink Provided:: Diced peaches alone and in juice. Swallow Onset Location:: Pyriform Sinuses PAS Score: PAS Score *8 Visual Analysis of Swallowing Efficiency and Safety (VASES) after the swallow: Hypopharynx Comments:: Peaches without juice had minimal residue in pyriforms. PAS score was 1 (does not enter airway). Peaches with juice was PAS score of 8. Regular Textures Food/Drink Provided:: Chicken noodle soup, Fruit/grain bar Swallow Onset Location:: Vallecula PAS Score: PAS Score *8 Visual Analysis of Swallowing Efficiency and Safety (VASES) after the swallow: Hypopharynx Comments:: 1st bite with no broth had almost no residue. Bite with broth and food had moderate residue in pyriform sinuses. Fruit/grain bar had residue in vallecula. Strategies Trialed:: Cued double swallow to clear residue. Additional Comments:: Noted no aspiration during trials of this food. However, several swallows later after patient was cued to cough, a small piece of noodle was noted in the subglottic shelf. Possible aspiration during the swallow but unable to tell due to whiteout phase of the swallow. During 1st trial of fruit/grain bar had covering of camera during the swallow with residue and unable to determine residue until it was cleared after double swallow and liquid wash. He did exhibit a throat clear while camera was covered. Diagnosis/Impressions Diagnosis: Mild oral phase dysphagia and moderate pharyngeal phase dysphagia Impressions: The oral phase is marked by... - Decreased bolus control w/ posterior loss of liquids to the pyriforms prior to the onset of the swallow. Solids spilled only to the vallecula. The pharyngeal phase is marked by... -Delayed swallow onset. -Decreased pharyngeal contraction most notable w/ liquid trials via visualization of green out where the liquid was visible on the camera vs. being constricted by the pharyngeal muscles. Clearance of solids and purees was better but when there was small amount of residue a double swallow effectively cleared. -SILENT aspiration of thin liquid trials with insufficient effort to clear thin liquids via cup. Effortful swallow with small sips and double swallow appeared to be the most effective for thin liquids. He benefited from verbal cues to utilize a HARD COUGH and RESWALLOW to help clear aspiration. Swallowing Impairment: Impaired Oropharyngeal Transport, Premature Posterior Loss and Decreased Pharyngeal Contraction Recommendations Diet: Regular Textures and Thin Liquids Medication Administration:: Whole with liquids Compensatory Strategies: Small Bites, Small Sips, Slow Rate, Multiple Swallows, Alternate bites/solids and sips/liquids, Sitting upright, Remain sitting upright for 30 minutes after PO intake and Minimize/decrease distractions Recommend Repeat Instrumental Swallow Assessment: Yes Comments: Use an effortful swallow along with a double swallow is needed on all swallows to clear residue. Utilize a HARD COUGH with RESWALLOW every 2-3 bites/sips. No mixed consistencies. Need for Skilled Speech Therapy Services: Yes Education Completed: 1. Described result of evaluation. and 4. Family/caregivers understand evaluation & agree w/ goals & tx plan. Frequency Frequency: 1x/Week Duration: 2 Months Visits in this POC: 8 Goals that are Established Patient/Family Goal: Patient's goal is for everyone to be able to hear him. Determination:: Goals will be added/modified as deemed necessary and ankush ropriate. Therapy will be discontinued when results of re-evaluation indicate therapy is no longer needed or lack of progress has been documented. Goal #1: Patient will increase vocal loudness to reach a target sound pressure level of 75 dB STAFF CERTIFIED NURSE MIDWIFE with 1 cue during reading at the word and sentence level, which will help increase vocal respiratory support for functional communication. Goal #2: Patient will increase vocal loudness to reach a target sound pressure level of 70 dB STAFF CERTIFIED NURSE MIDWIFE with 1 cue during conversation for functional communication. Goal #3: Patient will tolerate the least restrictive means of nutrition to facilitate adequate hydration/nutrition with optimum safety and efficiency of swallowing function during P.O. intake without overt signs and symptoms of aspiration. Goal #4: Patient will demonstrate and utilize recommended compensatory swallowing techniques to facilitate improved airway protection and decreased risk for aspiration during PO intake, across 3 out of 3 sessions. Goal #5: Patient will demonstrate and utilize recommended velopharyngeal and oropharyngeal strengthening exercises to facilitate improved velopharyngeal and oropharyngeal strength and coordination with minimal cueing and prompting provide by the clinician, across 3 to 3 sessions.
--- NOTE | 2025-01-14 10:35 | HP.SP.DC ---
ST Discharge Summary Discharged: Discharge: Kian Danielle is discharged from [facility] speech therapy as of January 14, 2025. He was evaluated on 10/02/24 for dysphonia. He was recommended therapy once weekly for 8 weeks. He was also evaluated for dysphagia with FEES on 10/22/24 with result of Regular Textures and Thin Liquids with goals added. He attended a total of 6/8 sessions. His last session was cancelled and no further visits were His dysphonia goals addressed increased volume in structured and unstructured tasks. He was progressing towards his goals but had not met any at the last session. His dysphagia goals addressed using strategies during oral intake and completing exercises. He was not using his strategies even after education regarding rationale to use them. He completed exercises in therapy but reporting not completing exercises at home. Please see reports and daily notes for details. Thank you for allowing me to participate in the care of this patient.
== END 2024-11-19 19:00 | disposition home or self-care (01) ==
LOC: SP 14:00
PROVIDERS: Referring Provider Internal Medicine Pulmonary Disease; Visit Provider Internal Medicine Pulmonary Disease
DX: R49.0 Dysphonia (principal)
CPT/HCPCS: 92507; 92524; 92526; 92610; 92612